=== PATIENT | female | born 1970 | race Caucasian/White ===

== ENCOUNTER → 2020-11-23 16:27 | Outpatient (BNVA) | payer BC, SELFPAY | PROVIDERS: Visit Provider Family Medicine | DX: E03.9 Hypothyroidism, unspecified (principal); I10 Essential (primary) hypertension; M79.7 Fibromyalgia; E11.9 Type 2 diabetes mellitus without complications | CPT/HCPCS: 80053; 80061; 83036; 84443; 85025 ==

== ENCOUNTER 2021-01-20 15:19 | Outpatient (CLI) | payer BC, SELFPAY ==
--- NOTE | 2021-01-20 15:27 | MM_ITS ---
WS: [id number] BILATERAL DIGITAL SCREENING MAMMOGRAPHY WITH CAD CLINICAL INFORMATION: Z12.31 - Encounter for screening mammogram for malignant neoplasm of breast HISTORY: Screening mammogram. No current complaints. COMPARISON: None. TECHNIQUE: Bilateral CC and MLO views. FINDINGS: Scattered fibroglandular densities bilaterally. No suspicious focal mass, asymmetry, calcifications, or architectural distortion. No evidence of malignancy. MM/[place] [id number] IMPRESSION: BI-RADS: 1-Negative FOLLOW UP: 1 Year Follow-up Recommend return to annual screening mammography.
== END 2021-01-20 15:20 | disposition home or self-care (01) ==
LOC: RADSHAW 15:25
PROVIDERS: PCP Family Medicine; Visit Provider Family Medicine
DX: Z12.31 Encounter for screening mammogram for malignant neoplasm of breast (principal)
CPT/HCPCS: 77067

== ENCOUNTER → 2021-03-22 12:13 | Outpatient (BNVA) | payer BC, SELFPAY | PROVIDERS: PCP Family Medicine; Visit Provider Family Medicine | DX: E03.9 Hypothyroidism, unspecified (principal); E11.9 Type 2 diabetes mellitus without complications; I10 Essential (primary) hypertension; E55.9 Vitamin D deficiency, unspecified | CPT/HCPCS: 80053; 80061; 82306; 83036; 84443; 85025 ==

== ENCOUNTER → 2021-05-10 12:11 | Outpatient (BNVA) | payer BC, SELFPAY | PROVIDERS: PCP Family Medicine; Visit Provider Family Medicine | DX: M25.562 Pain in left knee (principal); G89.29 Other chronic pain; M79.7 Fibromyalgia; M25.462 Effusion, left knee; M17.12 Unilateral primary osteoarthritis, left knee | CPT/HCPCS: 73562 ==

== ENCOUNTER → 2021-05-19 10:11 | Outpatient (BNVA) | payer BC, SELFPAY | PROVIDERS: PCP Family Medicine; Referring Provider Family Medicine; Visit Provider Specialist | DX: M25.762 Osteophyte, left knee (principal); M76.52 Patellar tendinitis, left knee; M25.562 Pain in left knee; G89.29 Other chronic pain | CPT/HCPCS: 73560; 73565; 80500; 87070; 87075; 87205; 89050 ==

== ENCOUNTER → 2021-07-07 11:55 | Outpatient (BNVA) | payer BC, SELFPAY | PROVIDERS: PCP Family Medicine; Visit Provider Family Medicine | DX: E03.9 Hypothyroidism, unspecified (principal); H53.9 Unspecified visual disturbance; R73.9 Hyperglycemia, unspecified; M25.462 Effusion, left knee; E11.9 Type 2 diabetes mellitus without complications; M79.7 Fibromyalgia | CPT/HCPCS: 36416; 80053; 80061; 82962; 83036; 84443; 85025; 85651; 86140; 86160; 86162; 86235; 86255; 86376 ==

== ENCOUNTER 2021-07-08 15:11 | Outpatient (CLI) | payer BC, SELFPAY ==
--- NOTE | 2021-07-08 15:15 | MR_ITS ---
WS: [id number] MRI LEFT KNEE HISTORY: M25.562 - Pain in left knee COMPARISON: Radiograph 05/10/2021 Motion artifact due to uncontrollable muscle spasms during this examination. Anterior cruciate ligament: There is increased signal throughout the ACL but the majority of the fibe rs are intact. Evaluation of the ACL is limited by motion artifact on most sequences. Posterior cruciate ligament: Intact. Medial collateral ligament: Intact but displaced by a partially extruded meniscus. Posterior lateral corner structures: Intact. Medial menisci: Horizontal tear towards the free edge along with blunting of the free edge of the pos terior horn. Lateral meniscus: Intact. Normal signal, size and shape. Extensor mechanism: Distal quadriceps tendon and patellar tendons are intact. Fluid and soft tissue: Large suprapatellar joint effusion. No Castrejon's cyst. Moderate amount of soft t issue edema surrounding the knee. There is also increased T2 signal and fluid within the infrapatella r fat pad. Osseous and articular structures: Patellofemoral compartment: Full-thickness small defect in the cartilage at the patellar eminence. De fect extends to the patellar surfaces. Focal subchondral edema in the lateral patellar facet. Medial compartment: Mild narrowing of the medial compartment. There is a small amount of edema along the anterior tibial plateau and along the posterior weightbearing surface of the femoral condyle. Mod erate loss of cartilage at the joint space. No fracture. Lateral compartment: Mild narrowing of the lateral compartment with thinning and fissuring of the car tilage. No marrow edema or fracture. MR/MR knee LT wo con* [id number] IMPRESSION: 1. Acute marrow edema in the medial femoral condyle and tibial plateau with no fracture. 2. Horizontal tear posterior horn medial meniscus. Tear extends to the free ed ge where there is blunting of the free edge also. 3. Mild narrowing of the medial and lateral compartments with mild to moderate loss of cartilage and fissuring. Most significant loss of cartilage in the med ial compartment. 4. Focal chondromalacia patella at the patellar eminence with subchondral faisal a along the lateral patellar facet. 5. Large joint effusion and soft tissue edema. 6. Increased T2 signal in the ACL but the majority of the fibers are intact. E valuation is limited by the motion artifact due to spasms. 7. Infrapatellar fat pad edema.
== END 2021-07-08 15:12 | disposition home or self-care (01) ==
PROVIDERS: PCP Family Medicine; Visit Provider Specialist
DX: R60.0 Localized edema (principal); M25.462 Effusion, left knee; M22.42 Chondromalacia patellae, left knee; S83.242A Other tear of medial meniscus, current injury, left knee, initial encounter; X58.XXXA Exposure to other specified factors, initial encounter
CPT/HCPCS: 73721

== ENCOUNTER → 2021-08-30 11:17 | Outpatient (BNVA) | payer BC, SELFPAY | PROVIDERS: PCP Family Medicine; Visit Provider Internal Medicine Rheumatology | DX: M25.462 Effusion, left knee (principal); M25.562 Pain in left knee; G89.29 Other chronic pain; E66.9 Obesity, unspecified; Z68.38 Body mass index [BMI] 38.0-38.9, adult | CPT/HCPCS: 20610; 99204 ==

== ENCOUNTER 2021-08-30 13:40 | Outpatient (CLI) | payer BC, SELFPAY ==
[2021-08-30 14:43] LABS: C Reactive Protein 13.3 mg/L (0.0-4.9)
[2021-08-31 16:58] LABS: Erythrocyte Sedimentation Rate 28 mm/hr (0-15)
== END 2021-08-30 13:41 | disposition home or self-care (01) ==
PROVIDERS: PCP Family Medicine; Visit Provider Internal Medicine Rheumatology
DX: G89.29 Other chronic pain (principal); M25.462 Effusion, left knee; M25.562 Pain in left knee
CPT/HCPCS: 36415; 85651; 86140; 86431

== ENCOUNTER → 2022-01-24 09:30 | Outpatient (BNVA) | payer MEDICARE, BC, SELFPAY | PROVIDERS: PCP Family Medicine; Visit Provider Specialist | DX: M25.462 Effusion, left knee (principal); M17.12 Unilateral primary osteoarthritis, left knee | CPT/HCPCS: 73560; 73565 ==

== ENCOUNTER 2022-01-24 13:14 | Outpatient (CLI) | payer MEDICARE, BC, SELFPAY | END 2022-01-24 13:15 | disposition home or self-care (01) | LOC: SPT 13:19 | PROVIDERS: PCP Family Medicine; Visit Provider Specialist | DX: Z46.89 Encounter for fitting and adjustment of other specified devices (principal); M17.12 Unilateral primary osteoarthritis, left knee | CPT/HCPCS: 80500; 89051; 97760; L1812 ==

== ENCOUNTER 2022-01-27 06:00 | Outpatient (RCR) | payer MEDICARE, BC, SELFPAY | END 2022-02-10 23:59 | disposition home or self-care (01) | LOC: TPT 06:00 | PROVIDERS: PCP Family Medicine; Referring Provider Specialist; Visit Provider Specialist | DX: M25.562 Pain in left knee (principal) | CPT/HCPCS: 97032; 97110; 97163 ==

== ENCOUNTER 2022-02-11 06:00 | Outpatient (RCR) | payer MEDICARE, BC, SELFPAY | END 2022-03-08 23:59 | disposition home or self-care (01) | LOC: TPT 06:00 | PROVIDERS: PCP Family Medicine; Referring Provider Specialist; Visit Provider Specialist | DX: M25.562 Pain in left knee (principal) | CPT/HCPCS: 97032; 97110 ==

== ENCOUNTER → 2022-03-07 13:52 | Outpatient (BNVA) | payer MEDICARE, BC, SELFPAY | PROVIDERS: PCP Family Medicine; Visit Provider Specialist | DX: M25.462 Effusion, left knee (principal); M17.12 Unilateral primary osteoarthritis, left knee | CPT/HCPCS: 99204 ==

== ENCOUNTER 2022-04-12 17:05 | Observation (INO) | payer MEDICARE, BC, SELFPAY ==
[2022-03-23 12:07] VITALS: BMI 35.5
[2022-03-23 12:17] LABS: Add Urine Microscopic? NO; Charge for UA Resulting for Rev
[2022-03-23 12:20] LABS: Bilirubin Urine Neg (Negative); Blood Urine Neg (Negative); Glucose Urine UA Norm (Normal); Ketones Urine Negative (Negative); Leukocyte Esterase Urine Negative (Negative); Nitrate Urine Negative (Negative); Protein Urine Neg (Negative); Urine Appearance Clear (CLEAR); Urine Color Yellow (Yellow); Urobilinogen Urine Norm (Negative); pH Urine 5 (5-7)
[2022-03-23 12:22] LABS: Basophils # 0.1 10^3/uL (0.0-0.1); Basophils % 1.4 %; Eosinophils # 0.2 10^3/uL (0.0-0.8); Eosinophils % 3.1 %; Hematocrit 40.5 % (37.0-47.0); Hemoglobin 13.3 g/dL (11.5-15.3); Lymphocytes # 2.1 10^3/uL (0.8-4.8); Lymphocytes % 29.2 %; Mean Corpuscular HGB Conc 32.8 g/dL (30.0-36.0); Mean Corpuscular Hemoglobin 30.8 pg (28.0-34.0); Mean Corpuscular Volume 93.8 fl (81-99); Mean Platelet Volume 10.5 fL (7.4-10.4); Monocytes # 0.5 10^3/uL (0.2-0.9); Monocytes % 7.4 %; Neutrophils # 4.19 10^3/uL (1.8-7.7); Neutrophils % 58.5 %; Nucleated Red Blood Cells % 0 %; Platelet Count 398 10^3/cmm (130-400); Red Blood Count 4.32 10^6/uL (4.1-5.3); Red Cell Distribution Width 13.2 % (12.1-15.1); White Blood Count 7.2 10^3/uL (4.0-10.0)
[2022-03-23 12:37] LABS: Alanine Aminotransferase 47 U/L (0-33); Albumin Level 4.7 g/dL (3.5-5.2); Alkaline Phosphatase 105 IU/L (35-105); Anion Gap 13.1 (5-19); Aspartate Amino Transferase 31 U/L (0-32); Blood Urea Nitrogen 12 mg/dL (6-20); Calcium 9.8 mg/dL (8.5-10.5); Carbon Dioxide 27 mmol/L (22-29); Chloride 102 mmol/L (98-107); Creatinine Clr Calc Pharmacy 130.7199; Globulin 2.9 g/dL (1.3-4.6); Glucose 78 mg/dL (65-115); Osmolality Calculated 285 mOsm/kg (285-295); Potassium 4.1 mmol/L (3.5-5.1); Sodium 138 mmol/L (136-145); Total Bilirubin 0.2 mg/dL (0.15-1.2); Total Protein 7.6 g/dL (6.6-8.7)
--- NOTE | 2022-03-23 13:51 | ANES.PREANE2 ---
Pre-Anesthetic Assessment Height/Weight: Height 1.68 m Weight 99.79 kg Preop Diagnosis: Primary osteoarthritis left knee Operation Date: 03/29/22 14:00 Proposed Procedures p Total Knee Arthroplasty 64613/left knee asteoarthritis M17.10(Left) - Rose Orantes MD Familial anesthetic complications: None Was Beta Jose G taken within 24 hours: N/A Was Clonidine taken within 24 hours: N/A Social No alcohol and No tobacco Exam alert, oriented x 3, clear to auscultation bilaterally and regular rate & rhythm Airway Submandibular: within normal limits Cervical ROM: within normal limits Mallampati: Class III Dentition: full Comments: Comments: TMJ--limited mouth opening CV/HEM Hypertension GI Gastroesophageal Reflux Disease Metabolic Diabetes Mellitus, Morbid Obesity and Thyroid Disease [facility] [place] Fibromyalgia and Lower Back Pain Chronic pain/opioid Anesthetic Plan ASA status: 3 Anesthesia: Regional (specify below) (SAB with adductor blk) Medications/Allergies Home Medications Medication Instructions Recorded Confirmed Last Taken Type Synthroid 150 mcg tablet See Rx Instructions .ROUTE 12/09/21 03/23/22 Unknown Rx (levothyroxine) .COMPLEX #90 tab NS amitriptyline 25 mg tablet See Rx Instructions .ROUTE 12/09/21 03/23/22 Unknown Rx .COMPLEX #90 tab cholecalciferol (vitamin D3) 125 125 mcg PO DAILY #30 tab 12/09/21 03/23/22 Unknown Rx mcg (5,000 unit) tablet (Vitamin D3) lisinopril 40 mg tablet 40 mg PO DAILY #90 tab 12/09/21 03/23/22 Unknown Rx metformin 500 mg tablet See Rx Instructions .ROUTE 12/09/21 03/23/22 Unknown Rx .COMPLEX #60 tab methocarbamol 750 mg tablet 1,500 mg PO BID #120 tab 12/09/21 03/23/22 Unknown Rx omeprazole 40 mg capsule,delayed 40 mg PO BID #60 cap 12/09/21 03/23/22 Unknown Rx release gabapentin 300 mg capsule 300 mg PO TID #90 cap 12/20/21 03/23/22 Unknown Rx hinged knee brace #1 ea 01/24/22 03/07/22 Unknown Rx diclofenac sodium 75 mg See Rx Instructions .ROUTE 03/07/22 03/23/22 Unknown Rx tablet,delayed release .COMPLEX #30 tab hydrocodone 7.5 mg-acetaminophen 1 tab PO BID PRN 30 Days #60 tab 03/09/22 03/23/22 Unknown Rx 325 mg tablet ascorbic acid (vitamin C) 250 mg 250 mg PO BID 03/23/22 03/23/22 Unknown History tablet (Vitamin C) cholecalciferol (vitamin D3) 25 25 mcg PO DAILY 03/23/22 03/23/22 Unknown History mcg (1,000 unit) capsule (Vitamin D3) [id number] 1 mg tab PO 03/23/22 Unknown History tablet Allergies Allergy/AdvReac Type Severity Reaction Status Date / Time hydroxychloroquine Allergy blurry Verified 03/07/22 14:17 vision [facility] Anesthesia Medical History Arthritis Degenerative disk disease Fibromyalgia Hearing loss of both ears Hypertension Scoliosis Type 2 diabetes mellitus Surgical History Hx of cholecystectomy Hx of hysterectomy, total Family History Mother Cancer Diabetes Hypertension Father Cancer Other CAD (coronary artery disease) Lung disease Denies family history of Chronic kidney disease (CKD) Stroke Social History Smoking and tobacco status: never smoked Second hand smoke exposure: No Smoking risk assessment/counseling performed?: No Alcohol intake: never Desire information about alcohol rehabilitation?: No Counseling given: No Desire information about substance/drug rehabilitation?: No Counseling given: No Adopted: No Caregiver/support person: No Lives independently: Yes Household members: spouse Housing: House Marital status: Number of children: 2 Highest education level completed: Some College, No Degree service: No Current occupational status: disabled Pets and animals: Yes Pets & animals: dog(s) History of recent travel: No Female Reproductive History Para: 2 Data Anesthesia : 03/23/22 12:10 03/23/22 12:10 Short CBC 03/23/22 Range/Units 12:10 WBC 7.2 (4.0-10.0) 10^3/uL Hgb 13.3 (11.5-15.3) g/dL Hct 40.5 (37.0-47.0) % MCV 93.8 (81-99) fl Plt Count 398 (130-400) 10^3/cmm Neut % (Auto) 58.5 % Neut # (Auto) 4.19 (1.8-7.7) 10^3/uL BMP 03/23/22 12:10 Sodium 138 Potassium 4.1 Chloride 102 Carbon Dioxide 27 BUN 12 Creatinine 0.6 Glucose 78 Calcium 9.8 Liver Function 03/23/22 Range/Units 12:10 Total Bilirubin 0.2 (0.15-1.2) mg/dL AST 31 (0-32) U/L ALT 47 H (0-33) U/L Alkaline Phosphatase 105 (35-105) IU/L Albumin 4.7 (3.5-5.2) g/dL Urine 03/23/22 Range/Units 12:10 Urine Color Yellow (Yellow) Urine Appearance Clear (CLEAR) Urine pH 5 (5-7) Ur Specific [place]amm[place] 1.020 (1.005-1.030) Urine Protein Neg (Negative) Urine Glucose (UA) Norm (Normal) Urine Ketones Negative (Negative) Urine Nitrate Negative (Negative) Urine Bilirubin Neg (Negative) Ur Leukocyte Esterase Negative (Negative) Cardiac Studies: No Data to Display
[2022-04-12] VITALS (14 sets, daily range): BP systolic 130–170; BP diastolic 74–126; PULSE 84–100; RESP 14–18; TEMP 36.4–36.7; O2SAT 92–97
[2022-04-12] MEDS: sodium chloride 0.9% 1,000 ML 30 ML IV (12:19)
[2022-04-12] MEDS: CELEcoxib 200 mg Capsule 400 MG PO (12:19)
[2022-04-12] MEDS: acetaminophen 1,000 MG/100 ML PIGGYBACK 400 MG IV ×2 (12:19→21:10)
[2022-04-12 12:26] LABS: Glucose Point of Care 104 mg/dL (70-110)
--- NOTE | 2022-04-12 13:42 | P.ANESUD_ITS ---
Pre-Anesthetic Update Pre-Anesthetic Assessment: Date of Surgery/Procedure: 04/12/22 Preop Matilde gnosis: Primary osteoarthritis left knee Proposed Procedure: Operation Date: 04/12/22 14:00 Proposed Procedures p Total Knee Arthroplasty 62424/left knee asteoarthritis M17.10(Left) - Rose Orantes MD Any changes to Pre-Anesthetic Assessment?: No Last Intake: Intake Last Liquid Date 04/11/22 Last Liquid Time 20:30 Last Solid Date 04/11/22 Last Solid Time 20:30 Vitals: Temperature 98 F 04/12/22 12:03 Temperature Source Temporal Artery S can 04/12/22 12:03 Pulse Rate 100 04/12/22 12:03 Pulse Rhythm 04/12/22 12:03 Pulse Strength 3+ Normal 04/12/22 12:03 Respiratory Rate 18 04/12/22 12:03 Blood Pressure 170/126 04/12/22 12:03 Blood Pressure Carmen n 140 04/12/22 12:03 Pulse Oximetry 97 04/12/22 12:03 Oxygen Delivery Me thod 04/12/22 12:03 Exam: Pre-Anes Outpt Exam: alert, oriented x 3, clear to auscultation bilaterally and regular rate & rhythm Cardiac Studies: No Data to Display
--- NOTE | 2022-04-12 13:46 | PM.HP ---
Providers/Chief Complaint Admitting Physician: Rose Orantes MD Primary Care Provider: Jihan Layton MD Chief Complaint: left knee osteoarthritis M17.10 History of Present Illness Katiana Zamarripa is a 51 year old female who presents today for left total knee arthroplasty. She states her pain is at 7/10 located in her left knee. She states the pain is constant. She states she was taking diclofenac for pain relief, but she quit taking it due to it upsetting her stomach.? Patient previously had a cortisone injection in the left knee on 01/24/2022. She states it provided no relief. She states she has been active in physical therapy. She has worn a hinged knee brace.? She notes at this point, she is ready to total knee arthroplasty as she has significant impact on her activities of daily living. Consents were signed, questions were answered, and plans were made for her surgical intervention. Review of Systems Const: Denies: fever(s) or chills Eyes: Denies: change in vision Card: Denies: chest pain or dyspnea on exertion Resp: Denies: dyspnea or productive cough GI: Denies: abdominal pain Musc: Denies: joint warmth Skin/Breast: Denies: erythema or changes in skin color Neuro: Denies: numbness in extremities Psych: Denies: anxiety or depression Papa/Lymph: Denies: easy bruising or easy bleeding Medications/Allergies Home Medications Medication Instructions Recorded Confirmed Last Taken Type cholecalciferol (vitamin D3) 125 125 mcg PO DAILY #30 tab 12/09/21 03/23/22 Unknown Rx mcg (5,000 unit) tablet (Vitamin D3) lisinopril 40 mg tablet 40 mg PO DAILY #90 tab 12/09/21 03/23/22 Unknown Rx methocarbamol 750 mg tablet 1,500 mg PO BID #120 tab 12/09/21 04/12/22 04/11/22 Rx omeprazole 40 mg capsule,delayed 40 mg PO BID #60 cap 12/09/21 04/12/22 04/11/22 Rx release gabapentin 300 mg capsule 300 mg PO TID #90 cap 12/20/21 04/12/22 04/10/22 Rx hinged knee brace #1 ea 01/24/22 03/07/22 Unknown Rx ascorbic acid (vitamin C) 250 mg 250 mg PO BID 03/23/22 03/23/22 Unknown History tablet (Vitamin C) cholecalciferol (vitamin D3) 25 25 mcg PO DAILY 03/23/22 03/23/22 Unknown History mcg (1,000 unit) capsule (Vitamin D3) [id number] 1 mg 1 tab PO DAILY 03/23/22 04/12/22 Unknown History tablet hydrocodone 7.5 mg-acetaminophen 1 tab PO BID PRN 30 Days #60 tab 04/07/22 04/12/22 04/12/22 Rx 325 mg tablet amitriptyline 25 mg tablet 25 mg PO DAILY 04/12/22 04/12/22 04/11/22 History diclofenac sodium 75 mg 75 mg PO BID 04/12/22 04/12/22 04/11/22 History tablet,delayed release levothyroxine 150 mcg tablet 150 mcg PO DAILY 04/12/22 04/12/22 04/11/22 History (Synthroid) metformin 500 mg tablet 500 mg PO BID 04/12/22 04/12/22 04/11/22 History Allergies Allergy/AdvReac Type Severity Reaction Status Date / Time hydroxychloroquine Allergy blurry Verified 03/07/22 14:17 vision PFSH Acute PFSH: Medical History Arthritis Degenerative disk disease Fibromyalgia Hearing loss of both ears Hypertension Scoliosis Type 2 diabetes mellitus Surgical History Hx of cholecystectomy Hx of hysterectomy, total Family History Mother Cancer Diabetes Hypertension Father Cancer Other CAD (coronary artery disease) Lung disease Denies family history of Chronic kidney disease (CKD) Stroke Social History Smoking and tobacco status: never smoked Second hand smoke exposure: No Smoking risk assessment/counseling performed?: No Alcohol intake: never Desire information about alcohol rehabilitation?: No Counseling given: No Desire information about substance/drug rehabilitation?: No Counseling given: No Adopted: No Caregiver/support person: No Lives independently: Yes Household members: spouse Housing: House Marital status: Number of children: 2 Highest education level completed: Some College, No Degree service: No Current occupational status: disabled Pets and animals: Yes Pets & animals: dog(s) History of recent travel: No Female Reproductive History: Para: 2 Vitals/I&O/Wt Last Vital Signs Temp 98 F 04/12/22 12:03 Pulse 100 04/12/22 12:03 Resp 18 04/12/22 12:03 BP 170/126 04/12/22 12:03 Pulse Ox 97 04/12/22 12:03 Physical Exam Const: COMMON NORMALS: no acute distress, average body habitus, patient oriented x3 and alert GENERAL APPEARANCE: cooperative and comfortable ORIENTATION/CONSCIOUSNESS: Yes awake HENMT: COMMON NORMALS: normocephalic and atraumatic HEAD & SCALP: normocephalic and atraumatic Eye: GENERAL EYE: appearance normal, both eyes and all related structures Chest: COMMONS NORMALS: normal inspection of the chest Resp: COMMON NORMALS: normal respiratory effort, No use of accessory muscles and clear to auscultation bilaterally EFFORT & INSPECTION: Yes able to speak in complete sentences and Yes symmetric chest movement Cardio: COMMON NORMALS: regular rate, regular rhythm, S1 normal heart sound present, S2 normal heart sound present, No gallops present (Cardio) and No murmurs present (Cardio) Extremity: LEFT LOWER EXTREMITY: Yes knee joint (Joint effusion present) Left knee: Yes inspection (Skin intact, no erythema), Yes palpation (Anterior medial joint line tenderness), Yes ROM (5 to 90 degrees), Yes neurovascular exam (Intact distally with 2+ pulses, calf is soft and nontender) and Yes other (Partially correctable varus deformity) Neuro: COMMON NORMALS: patient oriented x3 SENSORIUM/ORIENTATION: Yes alert Psych: COMMON NORMALS: mental status grossly normal APPEARANCE: Yes grossly normal ATTITUDE: Yes calm and Yes engaged ATTENTION/CONCENTRATION: Yes attention grossly intact Skin: COMMON NORMALS: no rashes or lesions noted GENERAL SKIN EXAM: no rashes or lesions noted Data : 03/23/22 12:10 03/23/22 12:10 Xray Ortho: My impression: Imaging studies were last obtained in January of this year.??X-ray series included bilateral AP weightbearing films of the knees as well as isolated lateral and sunrise of the patient's left knee.? Bilateral AP weightbearing films demonstrate there is slight varus deformity left knee.? Knee effusion is noted.? The patient is [id number] in the medial compartment.? Opposite right knee demonstrates relatively good preservation of joint space medially and laterally without significant varus or valgus deformity.? Lateral of the left knee demonstrates small osteophyte superiorly and inferiorly on the patella with irregularity of the trochlear groove.? The sunrise view demonstrates medial osteophytes on the patella and trochlear groove. MRI: My impression: The patient had an MRI of the left knee without contrast on July 08, 2021.? Findings on the MRI included acute marrow edema in the medial femoral condyle and tibial plateau with no evidence of fracture.? There was a horizontal tear in the posterior horn of the medial meniscus which extended to the free edge where there was blunting.? This, however is not in the area of the patient's pain.? There was also mild narrowing of the medial lateral compartments with mild to moderate loss of cartilage and fissuring of the cartilage.? The most significant loss of cartilage was in the medial compartment.? There was focal chondromalacia of the patella at the patellar eminence with subchondral edema along the lateral patella facet. There is a large joint effusion and soft tissue edema.? There is increased signal within the anterior cruciate ligament, but the majority of the fibers were intact.? There was some motion artifact due to spasms.? There was also infrapatellar fat pad edema. A&P Assessment and plan (1) Primary osteoarthritis of left knee: Established 51 year old female patient here for follow up of left knee pain. Patient states she has moderate pain. She has normal sensation, rapid capillary refill and 2+ pulses. Calf is soft and non tender, no redness noted. She has limited range of motion in the left knee.? Patient notes that nonoperative measures have not been beneficial for her.? She continues to have significant limitations in her activities of daily living.? Due to the pain in her knee which is worsening, she is ready to proceed with operative intervention. Risks, complications, and benefits are discussed. Consents are signed and questions are answered. She will follow up 2 weeks after the surgery. Status: Acute Attestations Medical Necessity Statement*: Patient requires hospitalization for postop rehab and pain management. Coding Level of Care Code Acute Client Services Manager for Nikki Monahan Diagnoses Primary osteoarthritis of left knee M17.12
--- NOTE | 2022-04-12 14:59 | ANES.PROC ---
Anesthesia Procedures Procedure/Date: 04/12/22 Nerve Block ^: Nerve Block 1: Main Anesthesia: spinal anesthesia block Time Out Performed: Yes Consent: requested by attending/covering physician, from patient, risks and benefits reviewed and patient agrees to proceed Nerve block location: adductor canal (left) Anesthesia monitors applied: pulse oximetry, EKG, BP cuff and oxygen Nerve block position: supine Anesthetic Used: ropivicaine 0.5% Amount of anesthesia used (mL): 20 Ultrasound used to: recognize landmarks Nerve Stimulator Used?: No Interscalene/Femoral BLK: 4 stimuplex 21 g needle used for position and inplane approach Injection: neg aspiration of heme Patient Tolerated Procedure: well Complications: none
[2022-04-12] MEDS: ceFAZolin 1,000 mg SDV 2000 MG IRRIGATION (15:06)
[2022-04-12] MEDS: vancomycin 1,000 MG SDV 1000 MG XX (15:07)
--- NOTE | 2022-04-12 16:52 | PM.OP ---
Operative Report Date of procedure: April 12, 2022 Pre-op diagnosis: Primary osteoarthritis left knee Post-op diagnosis: Primary osteoarthritis left knee Post-op findings: Severe degenerative osteoarthritis left knee Procedure done: Left total knee arthroplasty Implants: The Ellen total knee system with a size 4 triathlon beaded posterior stabilized femur left, a triathlon titanium tibial component size 4 beaded, a triathlon X3 posterior stabilized tibial bearing insert size 4 X 11 mm and a beaded triathlon titanium asymmetric patella size 35 x 10 mm Specimens removed/disposition: Bone, disposed of Pathology: none sent Surgeon: Rose Orantes Merchandise Pickup/Receiving Associate: [facility] operating room technicians Anesthesia: MAC (With with spinal, initially, ASA 3) and General (Converted to general secondary to sleep apnea issues) Estimated blood loss (mL): 20 Tourniquet time (min): 94 IV fluids (mL): 1,200 Urine output (mL): 300 Complications: None Findings: Severe degenerative osteoarthritis with large osteophytes. Near complete destruction of patellar cartilage. Condition: stable Disposition: PACU (Then to floor for postoperative rehabilitation and pain management) Brief History: Katiana Zamarripa is a 51 year old female who presents today for left total knee arthroplasty. She states her pain is at 7/10 located in her left knee. She states the pain is constant. She states she was taking diclofenac for pain relief, but she quit taking it due to it upsetting her stomach.? Patient previously had a cortisone injection in the left knee on 01/24/2022. She states it provided no relief. She states she has been active in physical therapy. She has worn a hinged knee brace.? She notes at this point, she is ready to total knee arthroplasty as she has significant impact on her activities of daily living.? Consents were signed, questions were answered, and plans were made for her surgical intervention. Procedure: The patient was brought to the operating theater, and after undergoing adequate spinal anesthesia supplemented with adductor canal block and MAC, ASA 3, the patient required conversion to a general anesthetic with LMA. This was secondary to sleep apnea type symptoms. The left lower extremity was prepped with Dura-Prep and draped in usual fashion following placement of a tourniquet high on the leg. The leg was then draped free. Following prepping and draping, the leg was exsanguinated, and the tourniquet was elevated to 250 mmHg for a total tourniquet time of 94 minutes.? Prior to elevation of the tourniquet, but following exposure of the site of surgery, a surgical pause was performed. At the time of the surgical pause, we confirmed the site and side of surgery. Additionally, we confirmed the appropriate and timely administration of preoperative antibiotics, Anceg 2 g. and Transexemic acid 1 g. The availability of equipment was confirmed, and the patient's identity was verbalized as well. Following the surgical pause, an incision was made centering over the patella continuing proximally and distally as necessary to allow access to the knee joint. Dissection continued through skin and soft tissues using a scalpel. Hemostasis was obtained using electrocautery. The skin incision was followed by a median parapatellar arthrotomy. The leg was extended and the patella was everted. Following this, the leg was returned to flexed position.? The distal femur was exposed, and a drill hole was made in this for placement of the distal femoral jig. The distal femoral jig was set at 5? of valgus. The distal femoral cutting block was then placed in appropriate position, and an maral wing was used to confirm an appropriate amount of distal femur would be resected.? The distal femoral resection was accomplished with 10 mm of bone being resected distally secondary to the patient's flexion contracture.? After the distal femoral resection was accomplished, the femur was measured and it measured a size 4.? Medial lateral dimension also measured a size 4 as well.? A size 4 femoral cutting block was placed in position, and we were then able to accomplish the anterior, posterior and chamfer cuts. This jig was then removed and the notch guide was placed in position. With the notch guide in appropriate position, the notch was excised including resection of the anterior and posterior cruciate ligaments. This notch was to allow for the posterior stabilized femoral component. At this point, the femur was prepared and attention was directed to the proximal tibia. The posterior knee retractor was placed along with medial and lateral retractors. Further resection of the menisci was accomplished as we had better visualization. A complete meniscectomy was performed both medially and laterally with care being taken to protect the popliteus. Retractors were then placed so that the proximal tibia was well visualized. A drill hole was then made in the tibia for placement of the intramedullary guide. This guide was placed so that approximately 2 mm of bone would be resected from the deficient medial tibial plateau. The intramedullary guide was utilized supplemented with an extramedullary guide to assure appropriate alignment for the proximal tibial resection. The proximal tibial jig was then evaluated, pinned in position, and the proximal tibial resection was accomplished without difficulty. The jig was removed, and the proximal tibia was measured. It measured a size 4. We then attempted a trial reduction with a size 4 by 11 mm.? Osteophytes were also removed from the tibia.? The femoral component was placed in position for the trial reduction, and the knee was placed through range of motion.? With this, there was appropriate patellar tracking. Extension was noted to be full as well.? With this we had excellent varus valgus alignment.? The knee was stable to varus valgus stress as well.? Therefore, this was the chosen component.? There was full extension and flexion without lift off and the rotation of the tibia was marked.? Alignment was checked from the hip to the ankle, and this was noted to be appropriate as well. Attention was then directed to the patella. The patella was measured with a caliper.? We resected sufficient patella to leave approximately 14 mm of patella remaining.? Measurements of the patella then indicated that a size asymmetric 35 mm x11 mm was the appropriate patellar size. We then placed the jig to drill for the 3 pegs of the press-fit patella, and these drill holes were made without incident. A trial patella was then placed, and the knee was placed through range of motion. The patella was noted to track nicely without evidence of subluxation.? The femur was prepared for a press-fit femur by drilling 2 holes for the femoral pegs.? All trial components were subsequently removed. The tibial tray was then pinned into position, and we broached the tibia for the stem of the tibial component.? Subsequently, 4 drill holes were made for placement of the press-fit tibia.? This was accomplished without difficulty. Care was taken to assure appropriate rotation of the tibia as well as appropriate position on the proximal tibia. The tibial tray was completely seated on the proximal tibia. Following broaching, the tibial guide was removed, and all surfaces were copiously irrigated. The surfaces were then dried and a bone plug was placed into the distal femur.? Exparel was also injected at this point. The Tritanium tibia was impacted into position.? The beaded femur was then impacted into position in a cementless fashion. The tibial insert was placed. The patella was pressed into position with a patellar clamp.? The knee was then copiously irrigated and suctioned dry. Attention was then directed to closure. Closure was accomplished with 0 Vicryl in the fascial tissues.? Following this, a 2-0 Monocryl was used in the subcutaneous tissues, and the skin was closed with skin conrado.? A sterile dressing was then placed consisting of Dermabond Prineo, Telfa, 4x4's, sterile soft roll, and an Sae wrap. The patient was returned the Recovery Room in a satisfactory condition. X-rays were obtained and reviewed there.? The patient will be discharged to the floor for postoperative rehabilitation and pain management. Related Problem List Diagnoses (1) Primary osteoarthritis of left knee:
--- NOTE | 2022-04-12 17:00 | XRR_ITS ---
PROCEDURE INFORMATION: Exam: XR Left Knee Exam date and time: 04/12/2022 5:01 PM Age: 51 years old Clinical indication: Device placement; Joint replacement hardware; Prior surgery; Surgery date: Post-operative (0-2 days); Additional info: Status post left total knee arthroplasty TECHNIQUE: Imaging protocol: XR Left knee. Views: 1 or 2 views. Total images: 1 COMPARISON: CR XR knees AP WB w LT lmt ORTH 01/24/2022 9:38 AM FINDINGS: Tubes, catheters and devices: The prosthesis appears near anatomic in positioning. No parallel lucencies adjacent to the prosthesis are seen to suggest loosening. No acute fractures, subluxation, nor dislocation. Bones/joints: Left knee arthroplasty is present. Soft tissues: Subcutaneous emphysema is present from recent surgery. Skin conrado are present. XR/XR knee LT 1-2V 07804 IMPRESSION: Status post recent left knee arthroplasty without complication.
--- NOTE | 2022-04-12 17:07 | ANE.PACU2 ---
Inpatient post-anesthesia follow up: Airway intact: Yes Vital signs: Temperature 97.5 F Pulse Rate 97 Respiratory Rate 18 Blood Pressure 151/87 Pulse Oximetry 96 Oxygen Delivery Me thod Room Air Oxygen Flow Rate 6 Fraction of Inspir ed Oxygen Hydration adequate: Yes Nausea and vomiting: No Pain level: 1 Mental status: Baseline
[2022-04-12] MEDS: oxyCODONE 5 mg IR Tab/Cap PO (17:53)
[2022-04-12] MEDS: calcium carbonate 500 mg Chew Tablet 1000 MG PO (18:30)
[2022-04-12] MEDS: sennosides-docusate Tablet 2 TAB PO (18:30)
[2022-04-12] MEDS: iron polysaccharide complex 150 mg Capsule PO (18:30)
[2022-04-12] MEDS: ondansetron 2 mg/ML SDV 2 mL 4 MG IVP (18:53)
[2022-04-12] MEDS: CELEcoxib 200 mg Capsule PO (21:30)
[2022-04-12] MEDS: chlorhexidine gluconate 0.12% Btl 473 mL 30 ML MUCOUS MEM (21:30)
[2022-04-13] VITALS (9 sets, daily range): BP systolic 152–174; BP diastolic 85–93; PULSE 89–101; RESP 15–18; TEMP 36.7–37.2; O2SAT 95–97
[2022-04-13] MEDS: oxyCODONE 5 mg IR Tab/Cap PO ×4 (00:18→14:48)
[2022-04-13] MEDS: ondansetron 2 mg/ML SDV 2 mL 4 MG IVP ×2 (00:19→10:41)
[2022-04-13 01:54] LABS: Basophils % 0.3 %; Hematocrit 35.6 % (37.0-47.0); Hemoglobin 11.7 g/dL (11.5-15.3); Lymphocytes # 1.1 10^3/uL (0.8-4.8); Lymphocytes % 6.9 %; Mean Corpuscular HGB Conc 32.9 g/dL (30.0-36.0); Mean Corpuscular Hemoglobin 30.4 pg (28.0-34.0); Mean Corpuscular Volume 92.5 fl (81-99); Mean Platelet Volume 10.6 fL (7.4-10.4); Monocytes # 0.7 10^3/uL (0.2-0.9); Monocytes % 4.6 %; Neutrophils # 13.62 10^3/uL (1.8-7.7); Neutrophils % 87.7 %; Nucleated Red Blood Cells % 0 %; Platelet Count 386 10^3/cmm (130-400); Red Blood Count 3.85 10^6/uL (4.1-5.3); Red Cell Distribution Width 12.8 % (12.1-15.1); White Blood Count 15.5 10^3/uL (4.0-10.0)
[2022-04-13 02:19] LABS: Anion Gap 14.1 (5-19); Blood Urea Nitrogen 14 mg/dL (6-20); Calcium 8.6 mg/dL (8.5-10.5); Carbon Dioxide 25 mmol/L (22-29); Chloride 102 mmol/L (98-107); Creatinine Clr Calc Pharmacy 130.7199; Glucose 145 mg/dL (65-115); Osmolality Calculated 287 mOsm/kg (285-295); Potassium 4.1 mmol/L (3.5-5.1); Sodium 137 mmol/L (136-145)
[2022-04-13] MEDS: acetaminophen 1,000 MG/100 ML PIGGYBACK 400 MG IV ×2 (04:15→12:16)
--- NOTE | 2022-04-13 08:38 | P.DS_ITS ---
Discharge Providers Date of Admission: 04/12/22 17:05 Date of Discharge: April 13, 2022 Attending Provider at Admission: Rose Orantes MD Attending Provider at Discharge: Rose Orantes MD Primary Care Provider: Jihan Layton MD Diagnoses at Discharge Discharge Diagnosis (1) Primary osteoarthritis of left knee: Status: Acute (2) Status post total left knee replacement not using cement: Status: Acute Permanent problem details: Date of procedure: April 12, 2022 Diagnosis: Primary osteoarthritis left knee Procedure done: Left total knee arthroplasty Implants: The Ellen total knee system with a size 4 triathlon beaded posterior stabilized femur left, a triathlon titanium tibial component size 4 beaded, a triathlon X3 posterior stabilized tibial bearing insert size 4 X 11 mm and a beaded triathlon titanium asymmetric patella size 35 x 10 mm Reason for Visit Reason for Visit: left knee osteoarthritis M17.10 Brief History: Katiana Zamarripa is a 51 year old female who presents today for left total knee arthroplasty. She states her pain is at 7/10 located in her left knee. She states the pain is constant. She states she was taking diclofenac for pain relief, but she quit taking it due to it upsetting her stomach.? Patient previously had a cortisone injection in the left knee on 01/24/2022. She states it provided no relief. She states she has been active in physical therapy. She has worn a hinged knee brace.? She notes at this point, she is ready to total knee arthroplasty as she has significant impact on her activities of daily living.? Consents were signed, questions were answered, and plans were made for her surgical intervention. Hospital Course Hospital Course Patient was admitted for same-day surgery in the form of left total knee arthroplasty. She underwent the surgical procedure uneventfully and without complication. She was brought into the hospital under observation status for postoperative rehabilitation and pain management. She did well on her first postoperative night. She was deemed to be safe with physical therapy. She wished to be discharged to home and family was in agreement. On the first postoperative day the dressings were removed down to the OpSite. There was minimal to no staining on the OpSite. There is minimal swelling with slight ecchymosis. The calf is soft and nontender with no evidence of DVT. Patient will be discharged home to follow-up with me in the office as scheduled. She will have home health for postoperative rehabilitation. Physical Exam Const: COMMON NORMALS: no acute distress, average body habitus, patient josefa ented x3 and alert GENERAL APPEARANCE: cooperative and comfortable ORIENTATION/CONSCIOUSNESS: Yes awake HENMT: COMMON NORMALS: normocephalic and atraumatic HEAD & SCALP: normocephalic and atraumatic Eye: GENERAL EYE: appearance normal, both eyes and all related structures Chest: COMMONS NORMALS: normal inspection of the chest Resp: COMMON NORMALS: normal respiratory effort EFFORT & INSPECTION: Yes able to speak in complete sentences and Yes symmetric chest movement Extremity: LEFT LOWER EXTREMITY: Yes knee joint (Dressing removed.) Left knee: Yes inspection (Minimal ecchymosis.), Yes palpation (Minimal tenderness.), Yes ROM (Able to straight leg raise.) and Yes neurovascular exam (Intact distally with no evidence of DVT) Neuro: COMMON NORMALS: patient oriented x3 SENSORIUM/ORIENTATION: Yes alert Psych: COMMON NORMALS: mental status grossly normal APPEARANCE: Yes grossly normal ATTITUDE: Yes calm and Yes engaged ATTENTION/CONCENTRATION: Yes attention grossly intact Skin: COMMON NORMALS: no rashes or lesions noted GENERAL SKIN EXAM: no rashes or lesions noted Urinary Catheter Management: Daly: Cath Placed During This Visit: yes, but has since been removed by the nurse Reason for Continuing Indwelling Catheter: Decision to DC Catheter Urinary Catheter Date of Insertion: 04/12/22 Urinary Catheter Time of Insertion: 14:30 Date Urinary Catheter Removed: 04/13/22 Time Urinary Catheter Discontinued: 06:20 Discharge Data Studies Completed and Pending Completed Studies During Hospitalization Category Date Time Status XR knee LT 1-2V [id number] Urgent Exams 04/12/22 17:00 Completed Radiology Impressions Knee X-Ray 04/12/22 17:00 IMPRESSION: Status post recent left knee arthroplasty without complication. Laboratory Results WBC 15.5 10^3/uL (4.0-10.0) H 04/13/22 01:32 RBC 3.85 10^6/uL (4.1-5.3) L 04/13/22 01:32 Hgb 11.7 g/dL (11.5-15.3) 04/13/22 01:32 Hct 35.6 % (37.0-47.0) L 04/13/22 01:32 MCV 92.5 fl (81-99) 04/13/22 01:32 MCH 30.4 pg (28.0-34.0) 04/13/22 01:32 MCHC 32.9 g/dL (30.0-36.0) 04/13/22 01:32 RDW 12.8 % (12.1-15.1) 04/13/22 01:32 Plt Count 386 10^3/cmm (130-400) 04/13/22 01:32 MPV 10.6 fL (7.4-10.4) H 04/13/22 01:32 Neut % (Auto) 87.7 % 04/13/22 01:32 Lymph % (Auto) 6.9 % 04/13/22 01:32 [place] % (Auto) 4.6 % 04/13/22 01:32 Eos % (Auto) 0.0 % 04/13/22 01:32 Baso % (Auto) 0.3 % 04/13/22 01:32 Neut # (Auto) 13.62 10^3/uL (1.8-7.7) H 04/13/22 01:32 Lymph # (Auto) 1.1 10^3/uL (0.8-4.8) 04/13/22 01:32 [place] # (Auto) 0.7 10^3/uL (0.2-0.9) 04/13/22 01:32 Eos # (Auto) 0.0 10^3/uL (0.0-0.8) 04/13/22 01:32 Baso # (Auto) 0.0 10^3/uL (0.0-0.1) 04/13/22 01:32 Nucleated RBC % (auto) 0 % 04/13/22 01:32 Nucleated RBCs # 0.0 /100WBC 04/13/22 01:32 Sodium 137 mmol/L (136-145) 04/13/22 01:32 Potassium 4.1 mmol/L (3.5-5.1) 04/13/22 01:32 Chloride 102 mmol/L (98-107) 04/13/22 01:32 Carbon Dioxide 25 mmol/L (22-29) 04/13/22 01:32 Anion Gap 14.1 (5-19) 04/13/22 01:32 BUN 14 mg/dL (6-20) 04/13/22 01:32 Creatinine 0.6 mg/dL (0.5-0.9) 04/13/22 01:32 GFR Calculation 105.0 mL/min (90-130) 04/13/22 01:32 Glucose 145 mg/dL (65-115) H 04/13/22 01:32 POC Glucose 104 mg/dL (70-110) 04/12/22 12:18 Calculated Osmolality 287 mOsm/kg (285-295) 04/13/22 01:32 Calcium 8.6 mg/dL (8.5-10.5) 04/13/22 01:32 Total Bilirubin 0.2 mg/dL (0.15-1.2) 03/23/22 12:10 AST 31 U/L (0-32) 03/23/22 12:10 ALT 47 U/L (0-33) H 03/23/22 12:10 Alkaline Phosphatase 105 IU/L (35-105) 03/23/22 12:10 Total Protein 7.6 g/dL (6.6-8.7) 03/23/22 12:10 Albumin 4.7 g/dL (3.5-5.2) 03/23/22 12:10 Globulin 2.9 g/dL (1.3-4.6) 03/23/22 12:10 Urine Color Yellow (Yellow) 03/23/22 12:10 Urine Appearance Clear (CLEAR) 03/23/22 12:10 Urine pH 5 (5-7) 03/23/22 12:10 Ur Specific [place] 1.020 (1.005-1.030) 03/23/22 12:10 Urine Protein Neg (Negative) 03/23/22 12:10 Urine Glucose (UA) Norm (Normal) 03/23/22 12:10 Urine Ketones Negative (Negative) 03/23/22 12:10 Urine Blood Neg (Negative) 03/23/22 12:10 Urine Nitrate Negative (Negative) 03/23/22 12:10 Urine Bilirubin Neg (Negative) 03/23/22 12:10 Urine Urobilinogen Norm mg/dL (Negative) 03/23/22 12:10 Ur Leukocyte Esterase Negative (Negative) 03/23/22 12:10 Vitals Last Vital Signs Temp 98.1 F 04/12/22 18:30 Pulse 84 04/12/22 20:34 Resp 18 04/13/22 04:14 BP 147/98 04/12/22 18:30 Pulse Ox 95 04/12/22 20:34 Discharge Plan Discharge Patient Disposition: Home Health Service Condition: Stable Prescriptions: New celecoxib 200 mg Capsule 200 mg PO Q12H 30 Days Qty: 60 0RF acetaminophen 500 mg Tablet 1,000 mg PO Q8H 15 Days Qty: 90 0RF aspirin 325 mg Tablet,Delayed Release (Dr/Ec) 325 mg PO DAILY 30 Days 0RF oxycodone 5 mg Tablet 5 mg PO Q4H PRN (Reason: Moderate Pain) 7 Days Qty: 30 0RF Continued methocarbamol 750 mg tablet 1,500 mg PO BID Qty: 120 3RF omeprazole 40 mg capsule,delayed release(DR/EC) 40 mg PO BID Qty: 60 4RF lisinopril 40 mg tablet 40 mg PO DAILY Qty: 90 2RF cholecalciferol (vitamin D3) [Vitamin D3] 125 mcg (5,000 unit) tablet 125 mcg PO DAILY Qty: 30 4RF (DME) hinged knee brace See Rx Instructions .Route .MEDSUPPLY Qty: 1 0RF Rx Instructions: As directed hydrocodone-acetaminophen 7.5-325 mg tablet 1 tab PO BID PRN (Reason: pain) 30 Days Qty: 60 0RF ascorbic acid (vitamin C) [Vitamin C] 250 mg Tablet 250 mg PO BID 0RF cholecalciferol (vitamin D3) [Vitamin D3] 25 mcg (1,000 unit) Capsule 25 mcg PO DAILY 0RF metformin 500 mg tablet 500 mg PO BID 0RF amitriptyline 25 mg tablet 25 mg PO DAILY 0RF Rx Instructions: TAKE 3 TABLETS BY MOUTH AT BEDTIME levothyroxine [Synthroid] 150 mcg tablet 150 mcg PO DAILY 0RF Rx Instructions: Take 1 tablet by mouth once daily. needs name brand. 340 B diclofenac sodium 75 mg tablet,delayed release (DR/EC) 75 mg PO BID 0RF Women's Daily Formula 18 mg iron-400 mcg-500 mg Ca Tablet 1 tab PO DAILY 0RF Discharge Orders: Discharge Order (Routine); Ordered 04/13/22 Ordered By: Rose Orantes Other Ambulatory Orders: DME: Bennie (Order) Location: None Selected Ordered By: Rose Orantes Ref[facility] [facility]) [Outside] Rose Orantes MD [Physician] - 04/28/22 2:00 pm Discharge Diet: Advance as tolerated and Usual diet Discharge Activity: Increase activity as tolerated, Limit activity as instructed, Use walker/crutches as instructed and As per PT/OT instructions Patient Instructions: Oxycodone, Rapid Release (By mouth) (ETH-Oxydose, Oxy IR,..., Celecoxib (By mouth) (Marionebremarilu eliksib), Precautions after Total Joint Replacement Surgery (DC), Knee Replacement (DC), Opioid Safety, Post Anesthesia Care Activity Restrictions/Additional Instructions: Ice and elevate both lower extremity. Weight-bear as tolerated. Gait training and ambulation per PT. Discharge Attestations Time Spent in Discharge Care*: greater than 30 min Specific Discharge Activities: educating patient, documenting/other paperwork and evaluating patient/reviewing data Quality Metrics Clinical Quality Measures [ No reported AMI, CVA or VTE this stay] Coding Level of Care Code Acute Chg FW DC note Diagnoses Primary osteoarthritis of left knee M17.12 Status post total left knee replacement not using cement Z96.652
[2022-04-13] MEDS: sennosides-docusate Tablet 2 TAB PO (08:49)
[2022-04-13] MEDS: cholecalciferol (vitamin D3) 1,000 unit Tablet 1000 UNIT PO (08:50)
[2022-04-13] MEDS: CELEcoxib 200 mg Capsule PO (08:50)
[2022-04-13] MEDS: aspirin 325 mg EC Tablet PO (08:51)
[2022-04-13] MEDS: iron polysaccharide complex 150 mg Capsule PO (08:51)
[2022-04-13] MEDS: calcium carbonate 500 mg Chew Tablet 1000 MG PO (08:51)
[2022-04-13] MEDS: chlorhexidine gluconate 0.12% Btl 473 mL 30 ML MUCOUS MEM (08:51)
--- NOTE | 2022-04-13 11:03 | PC.CHAP ---
Pastoral Care Encounter/Spiritual Assessment Type of Contact [] Declined kettle cleaner visit [] Patient/Family/Request visit [] Outpatient visit [] Follow-up visit [] Physician referral [] Code/Alert [x] Routine visit [] Staff referral [] Actively dying [] Patient sleeping [] Family support [] [] Out of room [] Palliative care [] [] Receiving care in room [] Pre-surgical visit [] Trauma [] Long length of stay [] ICU visit [] Other: Relational/Emotional Strength [x] Patient feels connected with others/family/visitors/staff [] Distress [] Loneliness/isolation [] Abandonment Spirituality of Patient [x] Person of Dasha [x] Attends Uatsdin of their Dasha [x] Believes in Prayer [x] Reads Bible or Hindu materials [] There are Spiritual issues to be addressed Electromechanical Assembly Technician Interventions [x] Prayer [x] Active listening [x] Non-anxious presence [x] Spiritual/emotional support [] Crisis/trauma care [] Spiritual counseling [] Bereavement support [] Provided bereavement packet [] Provided Bible/devotional materials [] Provided toy/stuffed animal, coloring book to patient or family member [] Provided Communion [] Anointing/[place] [] Salvation [x] Completed spiritual assessment [] Other: Impact on Illness or Injury [] Angry [] Fearful [] Anxious [] Often cries [] Exhaustion [] Unable to work [] Unable to attend spiritism [] Unable to walk/stand [] Unable to read [] Unable to drive [] Unable to eat/drink [] Unable to sleep [] Unable to be with family [] Patient intubated [] Other: Summary Time spent with patient 20 min
== END 2022-04-13 15:47 | disposition home health service (06) ==
LOC: MEDSURG 04-13 03:46
PROVIDERS: Admitting Provider Specialist; PCP Family Medicine; Visit Provider Specialist
PROC: (CPT 27447; principal; 2022-04-12 13:40)
DX: M17.12 Unilateral primary osteoarthritis, left knee (principal); I10 Essential (primary) hypertension; E11.9 Type 2 diabetes mellitus without complications; E66.01 Morbid (severe) obesity due to excess calories; Z68.35 Body mass index [BMI] 35.0-35.9, adult; M79.7 Fibromyalgia; G89.29 Other chronic pain; Z79.891 Long term (current) use of opiate analgesic
CPT/HCPCS: 27447; 36415; 36416; 51702; 64447; 73560; 76942; 80048; 80053; 81003; 82962; 85025; 97110; 97116; 97161; 97165; 97530; C1776; C9290; G0378; J0690; J1100; J2250; J2405; J2704; J2795; J3010; J3370; J3490; J7030

== ENCOUNTER → 2022-04-28 14:00 | Outpatient (BNVA) | payer MEDICARE, BC, SELFPAY | PROVIDERS: PCP Family Medicine; Visit Provider Nurse Practitioner Family | DX: Z96.652 Presence of left artificial knee joint (principal) | CPT/HCPCS: 73560; 73565 ==

== ENCOUNTER → 2022-05-18 11:02 | Outpatient (BNVA) | payer MEDICARE, BC, SELFPAY | PROVIDERS: PCP Family Medicine; Visit Provider Family Medicine | DX: E03.9 Hypothyroidism, unspecified (principal); E11.9 Type 2 diabetes mellitus without complications; I10 Essential (primary) hypertension | CPT/HCPCS: 80053; 80061; 83036; 84443; 85025 ==

== ENCOUNTER → 2022-05-26 13:14 | Outpatient (BNVA) | payer MEDICARE, BC, SELFPAY | PROVIDERS: PCP Family Medicine; Visit Provider Nurse Practitioner Family | DX: Z96.652 Presence of left artificial knee joint (principal) | CPT/HCPCS: 73560; 73565; 99024 ==

== ENCOUNTER → 2022-11-24 09:30 | Outpatient (BNVA) | payer MEDICARE, BC, SELFPAY | PROVIDERS: PCP Family Medicine; Visit Provider Family Medicine | DX: I10 Essential (primary) hypertension (principal); E03.9 Hypothyroidism, unspecified; E11.9 Type 2 diabetes mellitus without complications; R73.9 Hyperglycemia, unspecified; M79.7 Fibromyalgia | CPT/HCPCS: 80053; 80061; 82306; 83036; 84443; 85025 ==

== ENCOUNTER 2023-02-22 13:19 | Outpatient (CLI) | payer MEDICARE, BC, SELFPAY ==
--- NOTE | 2023-02-22 13:36 | MM_ITS ---
WS: [id number] BILATERAL 3D TOMOSYNTHESIS DIGITAL SCREENING MAMMOGRAPHY WITH CAD CLINICAL INFORMATION: Z12.31 - Encounter for screening mammogram for malignant ... HISTORY: Screening mammogram. LEFT breast soreness COMPARISON: January 20, 2021 TECHNIQUE: Bilateral CC and MLO views. FINDINGS: The breasts are composed of heterogeneous fibroglandular density tissue, which can limit the detectio n of small underlying mass lesions. No suspicious mass, asymmetry, calcifications, or architectural d istortion. No evidence of malignancy. A few tiny punctate and lucent centered calcifications. MM/[place] [id number] IMPRESSION: BI-RADS: 2-Benign FOLLOW UP: 1 Year Follow-up Recommend return to annual screening mammography.
== END 2023-02-22 13:20 | disposition home or self-care (01) ==
LOC: RAD 13:26
PROVIDERS: PCP Family Medicine; Visit Provider Family Medicine
DX: Z12.31 Encounter for screening mammogram for malignant neoplasm of breast (principal)
CPT/HCPCS: 77063; 77067